=== PATIENT | male | born 1955 | race Caucasian/White ===

== ENCOUNTER 2024-01-23 06:08 | Day surgery (SDC) | payer MEDICARE, OTHER, SELFPAY ==
[2024-01-23] VITALS (11 sets, daily range): BP systolic 103–130; BP diastolic 56–80; BMI 25.1
[2024-01-23] MEDS: TYLENOL 1000 MG PO (06:42)
[2024-01-23] MEDS: VANCOCIN 300 ML IV (06:55)
[2024-01-23] MEDS: VANCOCIN 300 MG IV (06:55)
[2024-01-23] MEDS: NORMOSOL-R/PLASMALYTE-A 1000 IV (06:56)
--- NOTE | 2024-01-23 06:59 | HP.FOC2 ---
Focused History & Physical
Chief Complaint
HPI:
Chief Complaint: right inguinal hernia
HPI / Indication for Planned Procedure: 69-year-old male recently seen in outpatient surgical evaluation secondary to a history of swelling in the right inguinal region. Examination confirmed the presence of a right inguinal hernia for which he
presents today for operative correction
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
Relevant Social History: Negative
Relevant Family History: Negative
Relevant Past Surgical History: Negative
Review of Systems
Review of Pertinent Systems: All Systems Negative
Medication
See Medication form for detailed medications: Yes
Medication List (including Herbals & OTC):
amlodipine 5 mg tablet 5 mg PO QPM 09/03/22
atorvastatin 10 mg tablet 10 mg PO QPM 09/03/22
cholecalciferol (vitamin D3) 25 mcg (1,000 unit) capsule (Vitamin D3) 25 mcg PO DAILY 09/03/22
hydrocortisone 10 mg tablet 10 mg PO QPM 09/03/22
hydrocortisone 20 mg tablet 20 mg PO DAILY 09/03/22
Medications Reviewed: Yes
Allergies and Reactions
Patient has Allergies: Yes
Noted Allergies and Reactions:
Allergy/AdvReac Type Severity Reaction Status Date / Time
adhesive tape Allergy Rash Verified 01/23/24 06:34
peanut Allergy Anaphylaxis Verified 01/23/24 06:34
Penicillins Allergy Unknown Verified 01/23/24 06:34
Pertinent Physical Exam
All Other Systems: Negative
Head/Neck: Normal
Lungs: Normal
Heart: Normal
Abdomen: Other (Reducible right inguinal hernia)
Extremities: Normal
Neurological: Normal
Diagnosis / Assessment
69-year-old male presenting for scheduled operative correction symptomatic right inguinal hernia
Plan / Procedure
Robotic assisted laparoscopic repair of right inguinal hernia with mesh
Anesthesia/Sedation to be done by Anesthesia Provider: Yes
--- NOTE | 2024-01-23 07:10 | W.SUR.PREOP ---
Pre-Operative Surgical Note
-
I have examined this patient prior to the performance of the scheduled procedure.
The patient's condition is unchanged from the time of the current History and
Physical and the patient is able to undergo the scheduled procedure.
--- NOTE | 2024-01-23 09:10 | W.IMMPOSTOP ---
Addendum entered and electronically signed by Evin Claire MD 01/23/24 09:20:
#[id number]
Original Note:
Surgical Immed Post Op Note
-
Primary Surgeon: Dakotah
Assisting Surgeon: Mickie MONTILLA
Pre-op Diagnosis: RIH
Post-op Diagnosis: RIH - direct
Procedure Performed: RAL JEROME repair RIH with mesh (3d Max mid-lg)
Anesthesia Type: GETA + 0.25% Marcaine
Specimen / Cultures: none
Estimated Blood Loss: 6mL
Complications: none
Operative Findings: Right direct inguinal hernia. 3D max large mid weight mesh repair. Pseudosac plicated with 2-0 PDS suture to Michoacano's ligament. Mesh secured with interrupted 2-0 Vicryl suture. Peritoneal flap closed with 2-0 Monocryl
STRATAFIX spiral. No additional notable operative findings.
The assistance of Mickie Knott PA-C was required due to the complexity of the procedure. During the procedure Mickie Knott PA-C assisted with port placement, robotic instrumentation and suture material/mesh exchanges, and closure of the surgical
incision sites. I was present for the entirety of the operative procedure.
[2024-01-23] MEDS: DILAUDID 0.25 MG IV (10:11)
== END 2024-01-23 12:09 | disposition home or self-care (01) ==
LOC: SDS 06:08
PROVIDERS: ATTENDING PHYSICIAN Surgery
PROC: 0YU54JZ Supplement Right Inguinal Region with Synthetic Substitute, Percutaneous Endoscopic Approach (ICD-10-PCS; 2024-01-23)
PROC: 8E0W4CZ Robotic Assisted Procedure of Trunk Region, Percutaneous Endoscopic Approach (ICD-10-PCS; 2024-01-23)
DX: K40.90 Unilateral inguinal hernia, without obstruction or gangrene, not specified as recurrent (principal); I10 Essential (primary) hypertension
CPT/HCPCS: 49650; C1781

== ENCOUNTER 2024-08-13 10:54 | Emergency (ER) | payer MEDICARE, OTHER, SELFPAY ==
[2024-08-13 10:58] VITALS: BP 162/88
--- NOTE | 2024-08-13 11:39 | ED.MUSCINJ ---
HPI-Injury
General
Chief Complaint: Fall
Source: patient
Exam Limitations: none
Time Seen by Provider: 08/13/24 11:12
History of Present Illness-Injury
Initial Injury comments:
69-year-old [id number] male presents complaining of left shoulder pain following a fall he sustained about 4 weeks ago. Initially had discomfort in his left leg and was treating a large hematoma to his leg however slowly after the fall the
pain in his left upper arm and shoulder progress. He notes an ache after he uses his arm. At the time of the injury he did not feel that he injured his shoulder or dislocated it. No other complaints at this time
Phy Exam
Physical Exam
Physical Exam:
General: Well-appearing male no acute respiratory distress
HEENT normocephalic atraumatic
Heart: Regular rate and rhythm no murmurs
Lungs: Clear no wheeze
Musculoskeletal exam: The patient is tender over the anterior lateral aspect of the left shoulder. Has good active range of motion. He has increased pain with forward elevation of the arm and resistance. No deformities the elbow is nontender
Injury Course
Orders/Labs/Results
Orders:
Orders
08/13/24 11:04
Shoulder, Left, Trauma CR [CR Shoulder, Trauma - Left] Urgent
Comment:
Reason For Exam: fall, pain
08/13/24 11:05
Humerus, Left 2 Views [CR Humerus - Left Min 2 Views*] Urgent
Comment:
Reason For Exam: fall, pain
MDM/Problems Addressed
Differential Diagnosis Includes:
Left shoulder pain after fall consider contusion versus strain versus fracture or dislocation
I personally visualized x-rays of the left shoulder which are negative for acute finding. Degenerative change. There is subchondral cyst. Suspect underlying strain recommended anti-inflammatories and follow-up. Stable for discharge
*Critical Care Note
Total Time (30-74mins, 75-104mins- exclusive of procedures): Not Applicable
ED Attending Note
-
Portions of this chart may have been created with voice recognition software.� Occasional wrong word or��sound alike� substitutions may have occurred due to the inherent limitations of voice recognition software.
Discharge Plan
Departure
Patient Disposition: Home (Routine Discharge)
Date of Disposition: 08/13/24
Time of Disposition: 11:42
Patient with high blood pressure during this ER visit?: No
Discharge Problem:
Left shoulder strain
Instructions: Muscle, joint, and bone pain - Discharge instructions
Prescriptions:
No Action
atorvastatin 10 mg Tablet
10 mg PO QPM
amlodipine 5 mg Tablet
5 mg PO QPM
hydrocortisone 20 mg Tablet
20 mg PO DAILY
hydrocortisone 10 mg Tablet
10 mg PO QPM
cholecalciferol (vitamin D3) [Vitamin D3] 25 mcg (1,000 unit) Capsule
25 mcg PO DAILY
ibuprofen 200 mg tablet
400 - 600 mg PO Q6HPRN PRN (Reason: moderate pain) Qty: 1 0RF
polyethylene glycol 3350 [Miralax] 17 gram/dose powder
4 g PO DAILY PRN (Reason: Constipation) Qty: 119 0RF
Rx Instructions:
start a laxative such as MIRALAX on day 2 after surgery if no bowel movement yet as long as no nausea/vomiting and passing gas
acetaminophen [Tylenol Extra Strength] 500 mg tablet
1,000 mg PO Q6HPRN PRN (Reason: mild pain) Qty: 1 0RF
oxycodone 5 mg tablet
5 mg PO Q4HPRN PRN (Reason: breakthrough/severe pain) Qty: 5 0RF
Referrals:
Dakotah Ely MD [Active] -
Activity Restrictions/Additional Instructions:
Use anti-inflammatories if needed for pain. Return if worse otherwise consider following up with orthopedics for further evaluation
Interventions
Interventions:
*Risk Screen - Suicide Last Done: 08/13/24 10:58
*General Assessment Last Done: 08/13/24 10:58
*Neglect/Abuse Screening Last Done: 08/13/24 10:58
Discharge Date and Time
Print Language: SOU[place]
== END 2024-08-13 11:48 | disposition home or self-care (01) ==
LOC: EMR 10:54
PROVIDERS: EMERGENCY PHYSICIAN Emergency Medicine
DX: S46.912A Strain of unspecified muscle, fascia and tendon at shoulder and upper arm level, left arm, initial encounter (principal); W19.XXXA Unspecified fall, initial encounter
CPT/HCPCS: 99283; 73030; 73060